=== PATIENT | female | born 1960 ===

== ENCOUNTER 2016-06-30 | Emergency (ER) | payer SELFPAY ==
[~2016-06-30] MED LIST: ACID REFLUX MED; CELEBREX200 M1 PO; COMPAZINE10 MG PO; CYCLOBENZAPRINE10 M1 PO; IRON256 MG PO; NORCO 5-325 TA1 EACH PO; PRILOSEC OTC20 M1 PO
[2016-06-30] MEDS ORDERED: OMEPRAZOLE20 M4 PO (20:12)
[2016-06-30] MEDS ORDERED: NORCO 5/3251 TAB PO (20:20)
== END 2016-06-30 20:35 ==
DX: M54.9 Dorsalgia, unspecified (principal); G89.29 Other chronic pain; H26.9 Unspecified cataract